=== PATIENT | male | born 1970 | race Caucasian/White ===

== ENCOUNTER 2017-06-08 15:11 | Emergency (ER) | payer OTHER ==
[~2017-06-08] VITALS: Ht 165.1 cm; Wt 136.1 kg
[~2017-06-08 15:11] MED LIST: ALBUTEROL SULFAT3 ML IH; AMLO5TAB PO; AMLODIPINE10 M2 PO; BREO ELLIPTA1 POW IH; CARVEDILOL6.25 MG PO; CIPRO 500MG TA500 MG PO; FLAGYL500 M1 PO; HYDRALAZINE50 MG PO; IBUPROFEN200 MG PO; LIPITOR10 MG PO; LISINOPRIL 10MG10 MG PO; NORCO 325 MG-51 TAB PO; POTASSIUM CHLO10 ME1 PO; PREDNISONE 20MG20 MG PO; PREDNISONE20 MG PO
[2017-06-08 15:27] LABS: HEMOGLOBIN 14.5 g/dL (14.1-18.0); LYMPH # 2.1 K/mm3 (0.7-4.5); LYMPH % 26.7 % (10-50)
--- OUTSIDE RECORDS SUMMARY | 2017-06-08 15:35 | External Medical Summary Rpt ---
Author Author , WARD HOPPER Address Unknown Phone [email or web address] Care Team Providers Care Auto Technician Name Role Phone [facility] Unavailable Unavailable HOSPITAL, [facility], Unavailable Unavailable [facility] Unavailable Unavailable [facility] BREEN MARTINA, NUHA MARTINA Unavailable Unavailable OLIVIER MARIA ELENA, OLIVIER Unavailable Unavailable MARIA ELENA OLIVIER MARIA ELENA, OLIVIER Unavailable Unavailable MARIA ELENA SANTOS RHO, SANTOS Unavailable Unavailable RHO KALIE ERAZO, Unavailable Unavailable HAGSTEPHANI CASTRO [facility] Unavailable Unavailable ASSOCIAT, [facility], 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 TECHNICIAN [facility] Unavailable [facility]available [facility], [facility], 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 TECHNICIAN [facility], Unavailable Unavailable [facility] Un[facility] Unavailable [facility] MARTINA BREEN MD Unavailable Unavailable CONSULTING SERV, MARTINA BREEN MD CONSULTING SERV PRETORIUS VARSHA, Unavailable Unavailable PRETORIUS VARSHA [facility] Unavailable Unavailable [facility], [facility], Unavailable [facility]available [facility], Unavailable Unavailable [facility] Purpose Continuity of Care Document - 12-23-2013 through 2016 Problems Code Diagnosis DOS Provider Status 65407 OBSTRUCTIVE 11-15-2014 [facility] WITHOUT EXACERBAT 64151 EXTRINSIC 11-15-2014 [facility] UNSPECIFIED LLC 4011 ESSENTIAL 09-15-2014 MARTINA VELOZ MD N, BENIGN CONSULTING SERV 4019 UNSPECIFIED 09-06-2014 [facility] [place] [facility] HYPERTENSIO N V771 SCREENING 09-06-2014 [facility] DIABETES [facility] MELLITUS 8509 UNSPECIFIED 08-31-2014 OLIVIER MARIA ELENA CONCUSSION E9179 OTHER 08-31-2014 OLIVIER MARIA ELENA STRIKING AGAINST W/WO SUBSEQUENT FALL 496 CHRONIC 02-16-2014 [facility], AIRWAY 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 OBSTRUCTION [facility]OS V5869 LONG-TERM 02-16-2014 [facility], (CURRENT) 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 TECHNICIAN USE OF [facility] CO OTHER HOS MEDICATIONS 63102 LEUKOCYTOSI 01-19-2014 [facility], S 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 TECHNICIAN UNSPECIFIED [facility] 28426 LEUKEMOID 01-19-2014 [facility] 34656 SHORTNESS 01-19-2014 [facility] 7862 COUGH 01-19-2014 [facility], 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 TECHNICIAN [facility] 2724 OTHER AND 01-12-2014 [facility], UNSPECIFIED 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 TECHNICIAN [facility] HYPERLIPIDE HOS COLT 75700 OTHER 01-12-2014 [facility], DISEASES OF 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 TECHNICIAN LUNG NOT [facility] ELSEWHERE HOS CLASSIFIED V570 CARE 01-12-2014 [facility], INVOLVING 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 TECHNICIAN BREATHING [facility] EXERCISES HOS V5883 ENCOUNTER 01-12-2014 [facility], FOR 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 TECHNICIAN THERAPEUTIC [facility] DRUG HOS MONITORING 4660 ACUTE 12-30-2013 [facility] V1269 PERSONAL 12-30-2013 [facility] OTHER DISEASES RESPIRATORY SYS 514 PULMONARY 12-23-2013 [facility] HYPOSTASIS 29238 OTHER 12-23-2013 [facility] RESPIRATORY ABNORMALITI ES Procedures Procedure DOS Code Location Performer Comment ADMN SET A7003 YOUR YOUR SM VOL 5 PHARMACY PHARMACY NONFILTR [facility] PNEUMAT NEBULIZR DISPBL DUP-SCAN 21150 MARTINA BREEN BREEN MARTINA ARTL KAEL 4 ABDL/PEL/ CONSULTIN SCROT&/[place] [address] [place] TH[facility]ROID 4 [facility] NG HORMONE TSH COMPREHEN 41838 [place] SIVE 4 [facility] PANEL BLOOD 25853 [place] COUNT 4 [facility] AUTOMATED RADIOLOGI 46166 [facility] [place] [facility] EXAM 4 RADIOLOGY RHO CHEST 2 VIEWS FRONTAL&L ATERAL HEMOGLOBI 42303 [place] N 4 [facility] DEMETRIS A1C LIPID 19070 [place] PANEL 4 [facility] NEBULIZER E0570 [facility] DHALIWAL WITH 4 [facility] R EQUIPME EQUIPME ADMN SET A7003 YOUR YOUR SM VOL 4 PHARMACY PHARMACY NONFILTR [facility] PNEUMAT NEBULIZR DISPBL BLOOD 52586 [facility] Kimeltu, [facility], COUNT 4 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 TECHNICIAN 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 TECHNICIAN COMPLETE CARMEN CARMEN AUTO&AUTO CO HOS CO HOS DIFRNTL WBC BASIC 98844 [facility] [employer]elt[employer], [facility], METABOLIC 4 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 TECHNICIAN 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 TECHNICIAN PANEL [facility] CARMEN CALCIUM CO HOS CO HOS TOTAL BLOOD 45336 [facility] SMEAR 4 [facility] PERIPHERA L INTERP PHYS W/WRIT REPORT RADIOLOGI 58550 [facility] Kimeltu, [facility], C EXAM 4 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 TECHNICIAN 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 TECHNICIAN CHEST 2 CARMEN CARMEN VIEWS CO HOS CO HOS FRONTAL&L ATERAL BRNCDILAT 35123 [facility] [place]elt[employer], [facility], RSPSE 4 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 TECHNICIAN 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 TECHNICIAN SPMTRY CARMEN CARMEN PRE&POST- CO HOS CO HOS BRNCDILAT ADMN LIPID 15797 [facility] [place]elt[employer], [facility], PANEL 4 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 TECHNICIAN 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 TECHNICIAN CARMEN [facility] CO HOS CO HOS LIPOPROTE 02307 [facility] [place], [facility], IN DIRECT 4 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 TECHNICIAN 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 TECHNICIAN CARMEN CARMEN MEASUREME CO HOS CO HOS NT LDL CHOLESTER OL BLOOD 01115 [facility] [place], [facility], COUNT 4 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 TECHNICIAN 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 TECHNICIAN COMPLETE CARMEN CARMEN AUTO&AUTO CO HOS CO HOS DIFRNTL WBC COMPREHEN 61836 [facility] [place], [facility], SIVE 4 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 TECHNICIAN 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 TECHNICIAN METABOLIC CARMEN CARMEN PANEL CO HOS CO HOS RADIOLOGI 95362 [facility] C EXAM 4 EIDER CASTRO CHEST 2 RADIOLOGY VIEWS ASSOCIAT FRONTAL&L ATERAL Encounters Encounter Start End Date Code Location Performer Type Date OFFICE 53499 MARTINA BREEN BREEN MARTINA OUTPATIEN 4 4 MD T VISIT CONSULTIN 15 G SERV MINUTES [facility] [place] - [address] [facility] T EMERGENCY 52094 OLIVIER AGUAYO 4 4 MARIA ELENA MARIA ELENA DEPARTMEN T VISIT HIGH/URGE NT SEVERITY [facility], - 4 4 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 TECHNICIAN OUTPATIEN [facility], - 4 4 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 TECHNICIAN OUTPATIEN [facility], - 4 4 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 TECHNICIAN OUTPATIEN [facility] T [facility] EMERGENCY 91458 [facility], 4 4 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 TECHNICIAN [facility] CARMEN T VISIT CO [facility] MODERATE SEVERITY HOSPITAL [facility], - 4 4 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 TECHNICIAN OUTPATIEN [facility] T CO HOS EMERGENCY 49927 [facility] PRETORIUS 4 4 [facility] T VISIT HIGH/URGE NT SEVERITY
--- OUTSIDE RECORDS SUMMARY | 2017-06-08 15:35 | External Medical Summary Rpt ---
Author Author , WARD HOPPER Address Unknown Phone [email or web address] [email or web address] Care Team Providers Care Quality Control Tester Name Role Phone [facility] Unavailable Unavailable HOSPITAL, [facility], Unavailable Unavailable [facility], Unavailable Unavailable [facility] BREEN MARTINA, NUHA MARTINA Unavailable Unavailable OLIVIER MARIA ELENA, OLIVIER Unavailable Unavailable MARIA ELENA OLIVIER MARIA ELENA, OLIVIER Unavailable Unavailable MARIA ELENA SANTOS RHO, SANTOS Unavailable Unavailable RHO KALIE ERAZO, Unavailable Unavailable HAGSTEPHANI CASTRO [facility] Unavailable Unavailable ASSOCIAT, [facility], HEALTH INSPECTOR FOOD [facility] Unavailable Unavailable CO HOS, [facility], HEALTH INSPECTOR FOOD [facility], Unavailable Unavailable [facility] Unavailable Unavailable LABS, [...] 2016 Problems Code Diagnosis DOS Provider Status 13252 OBSTRUCTIVE 11-15-2014 [facility] WITHOUT EXACERBAT 22544 EXTRINSIC 11-15-2014 [facility] PHARMACY UNSPECIFIED LLC 4011 ESSENTIAL 09-15-2014 MARTINA VELOZ MD N, BENIGN CONSULTING SERV 4019 UNSPECIFIED 09-06-2014 [facility] [place] [facility] HYPERTENSIO N V771 SCREENING 09-06-2014 [facility] 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 [facility] NEC HOS V5869 LONG-TERM 02-16-2014 [facility], (CURRENT) HEALTH INSPECTOR FOOD USE OF [facility] OTHER HOS MEDICATIONS 82748 LEUKOCYTOSI 01-19-2014 [facility], S HEALTH INSPECTOR FOOD UNSPECIFIED [facility] 91429 LEUKEMOID 01-19-2014 [facility] 37295 SHORTNESS 01-19-2014 [facility] 7862 COUGH 01-19-2014 [facility], HEALTH INSPECTOR FOOD [facility]OS 2724 OTHER AND 01-12-2014 [facility], UNSPECIFIED HEALTH INSPECTOR FOOD [facility] HYPERLIPIDE HOS COLT 19564 OTHER 01-12-2014 [facility], DISEASES OF HEALTH INSPECTOR FOOD LUNG NOT [facility] ELSEWHERE HOS CLASSIFIED V570 CARE 01-12-2014 [facility], INVOLVING HEALTH INSPECTOR FOOD BREATHING [facility] EXERCISES HOS V5883 ENCOUNTER 01-12-2014 [facility], FOR HEALTH INSPECTOR FOOD THERAPEUTIC [facility] DRUG HOS MONITORING 4660 ACUTE 12-30-2013 [facility] V1269 PERSONAL 12-30-2013 [facility] OTHER DISEASES RESPIRATORY SYS 514 PULMONARY 12-23-2013 [facility] HYPOSTASIS 82337 OTHER 12-23-2013 [facility] RESPIRATORY ABNORMALITI ES Procedures Procedure DOS Code Location Performer Comment ADMN SET A7003 YOUR YOUR SM VOL 5 PHARMACY PHARMACY NONFILTR [facility] PNEUMAT NEBULIZR DISPBL DUP-SCAN 75674 MARTINA BREEN BREEN MARTINA ARTL KAEL 4 ABDL/PEL/ CONSULTIN SCROT&/[place] [address] [place] TH[facility]ROID 4 [facility] NG HORMONE TSH COMPREHEN 65867 [place] SIVE 4 [facility] PANEL BLOOD 89330 [place] COUNT 4 [facility] AUTOMATED RADIOLOGI 31430 [facility] [place] [facility] EXAM 4 RADIOLOGY RHO CHEST 2 VIEWS FRONTAL&L ATERAL HEMOGLOBI 14550 [place] N 4 [facility] DEMETRIS A1C LIPID 57325 [place] PANEL 4 [facility] NEBULIZER E0570 [facility] DHALIWAL WITH 4 [facility] R EQUIPME EQUIPME ADMN SET A7003 YOUR YOUR SM VOL 4 PHARMACY PHARMACY NONFILTR [facility] PNEUMAT NEBULIZR DISPBL BLOOD 84941 [facility] [employer], [facility], COUNT 4 HEALTH INSPECTOR FOOD HEALTH INSPECTOR FOOD COMPLETE CARMEN CARMEN AUTO&AUTO CO HOS CO HOS DIFRNTL WBC BASIC 59114 [facility] [employer], [facility], METABOLIC 4 HEALTH INSPECTOR FOOD HEALTH INSPECTOR FOOD PANEL CARMEN CARMEN CALCIUM CO HOS CO HOS TOTAL BLOOD 77933 [facility] SMEAR 4 [facility] PERIPHERA L INTERP PHYS W/WRIT REPORT RADIOLOGI 83871 [facility] [employer], [facility], C EXAM 4 HEALTH INSPECTOR FOOD HEALTH INSPECTOR FOOD CHEST 2 CARMEN CARMEN VIEWS CO HOS CO HOS FRONTAL&L ATERAL BRNCDILAT 01333 [facility] [employer], [facility], RSPSE 4 HEALTH INSPECTOR FOOD HEALTH INSPECTOR FOOD SPMTRY CARMEN CARMEN PRE&POST- CO HOS CO HOS BRNCDILAT ADMN LIPID 78611 [facility] [employer], [facility], PANEL 4 HEALTH INSPECTOR FOOD HEALTH INSPECTOR FOOD CARMEN CARMEN CO HOS CO HOS LIPOPROTE 91480 [facility] [employer], [facility], IN DIRECT 4 HEALTH INSPECTOR FOOD HEALTH INSPECTOR FOOD CARMEN CARMEN MEASUREME CO HOS CO HOS NT LDL CHOLESTER OL BLOOD 46934 [facility] [employer], [facility], COUNT 4 HEALTH INSPECTOR FOOD HEALTH INSPECTOR FOOD COMPLETE CARMEN CARMEN AUTO&AUTO CO HOS CO HOS DIFRNTL WBC COMPREHEN 41494 [facility] [employer], [facility], SIVE 4 HEALTH INSPECTOR FOOD HEALTH INSPECTOR FOOD METABOLIC CARMEN CARMEN PANEL CO HOS CO HOS RADIOLOGI 16034 [facility] C EXAM 4 EIDER CASTRO CHEST 2 RADIOLOGY VIEWS ASSOCIAT FRONTAL&L ATERAL Encounters Encounter Start End Date Code Location Performer Type Date OFFICE 00205 MARTINA BREEN BREEN MARTINA OUTPATIEN 4 4 MD T VISIT CONSULTIN 15 G SERV MINUTES [facility] [place] - [address] [facility] T EMERGENCY 38810 OLIVIER AGUAYO 4 4 MARIA ELENA MARIA ELENA DEPARTMEN T VISIT HIGH/URGE NT SEVERITY [facility], - 4 4 HEALTH INSPECTOR FOOD OUTPATIEN [facility] - 4 4 HEALTH INSPECTOR FOOD OUTPATIEN [facility] - 4 4 HEALTH INSPECTOR FOOD OUTPATIEN [facility] T CO HOS EMERGENCY 27091 [facility], 4 4 HEALTH INSPECTOR FOOD [facility] CARMEN T VISIT CO [facility] MODERATE SEVERITY HOSPITAL [facility], - 4 4 HEALTH INSPECTOR FOOD OUTPATIEN [facility] T CO HOS EMERGENCY 60968 [facility] PRETORIUS 4 4 [facility] T VISIT HIGH/URGE NT SEVERITY
--- OUTSIDE RECORDS SUMMARY | 2017-06-08 15:36 | External Medical Summary Rpt ---
Author Author , WARD HOPPER Address Unknown Phone [email or web address] Care Team Providers Care Development Geologist Name Role Phone [facility] Unavailable Unavailable HOSPITAL, [facility], Unavailable Unavailable [facility], Unavailable Unavailable [facility] BREEN MARTINA, NUHA MACK Unavailable Unavailable OLIVIER MARIA ELENA, OLIVIER Unavailable Unavailable MARIA ELENA OLIVIER MARIA ELENA, OLIVIER Unavailable Unavailable MARIA ELENA SANTOS RHO, SANTOS Unavailable Unavailable RHO KALIE ERAZO, Unavailable Unavailable KALIE ERAZO [facility] Unavailable Unavailable ASSOCIAT, [facility], CRIMINAL PROFILER [facility] Unavailable Unavailable [facility], [facility], CRIMINAL PROFILER [facility] CO [facility], Unavailable Unavailable [facility] Unavailable Unavailable LABS, [...] 2016 Problems Code Diagnosis DOS Provider Status 07873 OBSTRUCTIVE 11-15-2014 [facility] WITHOUT EXACERBAT 02888 EXTRINSIC 11-15-2014 [facility] PHARMACY UNSPECIFIED LLC 4011 ESSENTIAL 09-15-2014 MARTINA VELOZ MD N, BENIGN CONSULTING SERV 4019 UNSPECIFIED 09-06-2014 [facility] [place] [facility] HYPERTENSIO N V771 SCREENING 09-06-2014 [facility] DIABETES [facility] MELLITUS 8509 UNSPECIFIED 08-31-2014 OLIVIER MARIA ELENA CONCUSSION E9179 OTHER 08-31-2014 OLIVIER MARIA ELENA STRIKING AGAINST W/WO SUBSEQUENT FALL 496 CHRONIC 02-16-2014 [facility], AIRWAY CRIMINAL PROFILER OBSTRUCTION [facility] NEC HOS V5869 LONG-TERM 02-16-2014 [facility], (CURRENT) CRIMINAL PROFILER USE OF [facility] CO OTHER HOS MEDICATIONS 87506 LEUKOCYTOSI 01-19-2014 [facility], S CRIMINAL PROFILER UNSPECIFIED [facility] 59739 LEUKEMOID 01-19-2014 [facility] 18726 SHORTNESS 01-19-2014 [facility] 7862 COUGH 01-19-2014 [facility], CRIMINAL PROFILER [facility] CO HOS 2724 OTHER AND 01-12-2014 [facility], UNSPECIFIED CRIMINAL PROFILER [facility] HYPERLIPIDE HOS COLT 77677 OTHER 01-12-2014 [facility], DISEASES OF CRIMINAL PROFILER LUNG NOT [facility] CO ELSEWHERE HOS CLASSIFIED V570 CARE 01-12-2014 [facility], INVOLVING CRIMINAL PROFILER BREATHING [facility] EXERCISES HOS V5883 ENCOUNTER 01-12-2014 [facility], FOR CRIMINAL PROFILER THERAPEUTIC [facility] DRUG HOS MONITORING 4660 ACUTE 12-30-2013 [facility] V1269 PERSONAL 12-30-2013 [facility] OTHER DISEASES RESPIRATORY SYS 514 PULMONARY 12-23-2013 [facility] HYPOSTASIS 30923 OTHER 12-23-2013 [facility] RESPIRATORY ABNORMALITI ES Procedures Procedure DOS Code Location Performer Comment ADMN SET A7003 YOUR YOUR SM VOL 5 PHARMACY PHARMACY [employer] PNEUMAT NEBULIZR DISPBL DUP-SCAN 75908 MARTINA BREEN BREEN MARTINA ARTL KAEL 4 ABDL/PEL/ CONSULTIN SCROT&/RP G SERV R ORGN COM COMPREHEN 28354 SURI NICHOLSON SIVE [address] [place] [address] [place] [address] SURI NICHOLSASYA THYROID 4 [facility] NG HORMONE TSH RADIOLOGI 35432 [facility] [place] [facility] C EXAM 4 RADIOLOGY RHO CHEST 2 VIEWS FRONTAL&L ATERAL LIPID 77819 SURI NICHOLSON PANEL [address] [place] [address] HEMOGLOBI 79877 MAGDALENAASYA MAGDALENAON N [address] [place] [address] DEMETRIS A1C BLOOD [address] [facility] AUTOMATED ADMN SET A7003 YOUR YOUR SM VOL 4 PHARMACY PHARMACY NONFILTR [facility] PNEUMAT NEBULIZR DISPBL NEBULIZER E0570 MADHURI DHALIWAL WITH 4 HOME HOME COMPRESS[facility] MEDICAL MEDICAL R EQUIPME EQUIPME BASIC 55329 [facility], [facility], METABOLIC 4 CRIMINAL PROFILER CRIMINAL PROFILER PANEL CARMEN CARMEN CALCIUM CO HOS CO HOS TOTAL BLOOD 53906 [facility], [facility], COUNT 4 CRIMINAL PROFILER CRIMINAL PROFILER COMPLETE CARMEN CARMEN AUTO&AUTO CO HOS CO HOS DIFRNTL WBC BLOOD 61713 [facility] SMEAR 4 [facility] LLC PERIPHERA L INTERP PHYS W/WRIT REPORT RADIOLOGI 36714 [facility] C EXAM 4 EIDER CASTRO CHEST 2 RADIOLOGY VIEWS ASSOCIAT FRONTAL&L ATERAL COMPREHEN 68906 [facility] Symphony [employer], [facility], SIVE 4 CRIMINAL PROFILER CRIMINAL PROFILER METABOLIC CARMEN CARMEN PANEL CO HOS CO HOS BRNCDILAT 31229 [facility] Symphony Dynamo, [facility], RSPSE 4 CRIMINAL PROFILER CRIMINAL PROFILER SPMTRY CARMEN MORALES PRE&POST- CO HOS CO HOS BRNCDILAT ADMN LIPID 20570 [facility] Symphony Dynamo, [facility], PANEL 4 CRIMINAL PROFILER CRIMINAL PROFILER CARMEN CARMEN CO HOS CO HOS LIPOPROTE 48937 [facility] Symphony [employer], [facility], IN DIRECT 4 CRIMINAL PROFILER CRIMINAL PROFILER CARMEN CARMEN MEASUREME CO HOS CO HOS NT LDL CHOLESTER OL BLOOD 59310 [facility] Symphony [employer], [facility], COUNT 4 CRIMINAL PROFILER CRIMINAL PROFILER COMPLETE CARMEN CARMEN AUTO&AUTO CO HOS CO HOS DIFRNTL WBC RADIOLOGI 17315 [facility] C EXAM 4 EIDER CASTRO CHEST 2 RADIOLOGY VIEWS ASSOCIAT FRONTAL&L ATERAL Encounters Encounter Start End Date Code Location Performer Type Date OFFICE 38106 MARTINA BREEN BREEN MARTINA OUTPATIEN 4 4 MD T VISIT CONSULTIN 15 G SERV MINUTES [facility] [place] - 4 4 [facility] T EMERGENCY 91500 OLIVIER AGUAYO 4 4 MARIA ELENA MARIA ELENA DEPARTMEN T VISIT HIGH/URGE NT SEVERITY HOSPITAL [facility], - 4 4 CRIMINAL PROFILER OUTPATIEN [facility] T [facility] - 4 4 CRIMINAL PROFILER OUTPATIEN CARMEN T [facility], - 4 4 CRIMINAL PROFILER OUTPATIEN CARMEN T [facility], - 4 4 CRIMINAL PROFILER OUTPATIEN CARMEN T CO [facility] EMERGENCY 64211 [facility], 4 4 CRIMINAL PROFILER [facility] CARMEN T VISIT CO HOS MODERATE SEVERITY EMERGENCY 28357 CARMEN PRETORIUS [address] [facility] T VISIT HIGH/URGE NT SEVERITY
--- OUTSIDE RECORDS SUMMARY | 2017-06-08 15:36 | External Medical Summary Rpt ---
Author Author [employer], [employer] Address Unknown Phone Unavailable
--- OUTSIDE RECORDS SUMMARY | 2017-06-08 15:36 | External Medical Summary Rpt ---
Demographics Preferred Language Hebrew Marital Status Unknown Yarsanism Affiliation Unknown Race Unknown Ethnic Group Unknown Author Author FARIHA Address Unknown Phone Immunization Unable to retrieve immunization data due to connection failure with Immunization Registry. Please try again later.
--- OUTSIDE RECORDS SUMMARY | 2017-06-08 15:36 | External Medical Summary Rpt ---
Demographics Preferred Language Italian Marital Status Unknown Alevism Affiliation Unknown Race Unknown Ethnic Group Unknown Author Author FARIHA Address Unknown Phone Immunization Unable to retrieve immunization data due to connection failure with Immunization Registry. Please try again later.
--- OUTSIDE RECORDS SUMMARY | 2017-06-08 15:36 | External Medical Summary Rpt ---
Author Author , WARD HOPPER Address Unknown Phone [email or web address] Care Team Providers Care Cd Technician Name Role Phone [facility] Unavailable Unavailable HOSPITAL, [facility], Unavailable Unavailable [facility], Unavailable Unavailable [facility] BREEN MARTINA, NUHA MACK Unavailable Unavailable OLIVIER MARIA ELENA, OLIVIER Unavailable Unavailable MARIA ELENA OLIVIER MARIA ELENA, OLIVIER Unavailable Unavailable MARIA ELENA SANTOS RHO, SANTOS Unavailable Unavailable RHO KALIE ERAZO, Unavailable Unavailable KALIE ERAZO [facility] Unavailable Unavailable ASSOCIAT, [facility], PARAMEDIC SUPERVISOR [facility] Unavailable Unavailable CO [facility], [facility], PARAMEDIC SUPERVISOR [facility], Unavailable Unavailable [facility] Unavailable Unavailable LABS, [...] 2016 Problems Code Diagnosis DOS Provider Status 91541 OBSTRUCTIVE 11-15-2014 [facility] WITHOUT EXACERBAT 68654 EXTRINSIC 11-15-2014 YOUR ASTHMA, PH[facility]ACY UNSPECIFIED LLC 4011 ESSENTIAL 09-15-2014 MARTINA VELOZ MD N, BENIGN CONSULTING SERV 4019 UNSPECIFIED 09-06-2014 [facility] HYPERTENSIO N V771 SCREENING 09-06-2014 [facility] DIABETES [facility] MELLITUS 8509 UNSPECIFIED 08-31-2014 OLIVIER MARIA ELENA CONCUSSION E9179 OTHER 08-31-2014 OLIVIER MARIA ELENA STRIKING AGAINST W/WO SUBSEQUENT FALL 496 CHRONIC 02-16-2014 [facility], AIRWAY PARAMEDIC SUPERVISOR OBSTRUCTION [facility] NEC [facility] V5869 LONG-TERM 02-16-2014 [facility], (CURRENT) PARAMEDIC SUPERVISOR USE OF [facility] OTHER HOS MEDICATIONS 46128 LEUKOCYTOSI 01-19-2014 [facility], S PARAMEDIC SUPERVISOR UNSPECIFIED [facility] [place] [facility] 30600 LEUKEMOID 01-19-2014 [facility] 10822 SHORTNESS 01-19-2014 [facility] 7862 COUGH 01-19-2014 [facility], PARAMEDIC SUPERVISOR [facility] 2724 OTHER AND 01-12-2014 [facility], UNSPECIFIED PARAMEDIC SUPERVISOR [facility] HYPERLIPIDE HOS COLT 28697 OTHER 01-12-2014 [facility], DISEASES OF PARAMEDIC SUPERVISOR LUNG NOT [facility] ELSEWHERE HOS CLASSIFIED V570 CARE 01-12-2014 [facility], INVOLVING PARAMEDIC SUPERVISOR BREATHING [facility] EXERCISES HOS V5883 ENCOUNTER 01-12-2014 [facility], FOR PARAMEDIC SUPERVISOR THERAPEUTIC [facility] DRUG [facility] MONITORING 4660 ACUTE 12-30-2013 [facility] [id number] PERSONAL 12-30-2013 [facility] OTHER DISEASES RESPIRATORY SYS 514 PULMONARY 12-23-2013 [facility] HYPOSTASIS 03964 OTHER 12-23-2013 [facility] RESPIRATORY ABNORMALITI ES Procedures Procedure DOS Code Location Performer Comment ADMN SET A7003 YOUR YOUR SM VOL 5 PHARMACY PHARMACY [facility] PNEUMAT NEBULIZR DISPBL DUP-SCAN 49921 MARTINA BREEN BREEN MARTINA ARTL KAEL 4 ABDL/PEL/ CONSULTIN SCROT&/RP G SERV R ORGN COM COMPREHEN 74969 SURI NICHOLSON SIVE [address] [place] [address] [place] [address] SURI NICHOLSASYA THYROID 4 [facility] RADIOLOGI 85482 [facility] [place] SANTOS C EXAM 4 RADIOLOGY RHO CHEST 2 VIEWS FRONTAL&L ATERAL LIPID 49229 SURI NICHOLSON PANEL [address] [place] [address] HEMOGLOBI 78930 MAGDALENAASYA MAGDALENAON N [address] [place] [address] DEMETRIS A1C BLOOD 33397 SURI NICHOLSON COUNT 4 [facility] AUTOMATED ADMN SET A7003 YOUR YOUR SM VOL 4 PHARMACY PHARMACY NONFILTR [employer] PNEUMAT NEBULIZR DISPBL NEBULIZER E0570 MADHURI DHALIWAL WITH 4 HOME HOME [facility] R EQUIPME EQUIPME BASIC 20613 [facility], [facility], METABOLIC 4 PARAMEDIC SUPERVISOR PARAMEDIC SUPERVISOR PANEL CAR[facility] CALCIUM CO HOS CO HOS TOTAL BLOOD 74685 [facility], [facility], COUNT 4 PARAMEDIC SUPERVISOR PARAMEDIC SUPERVISOR COMPLETE CARMEN CARMEN AUTO&AUTO CO HOS CO HOS DIFRNTL WBC BLOOD 26774 [facility] SMEAR 4 [facility] PERIPHERA L INTERP PHYS W/WRIT REPORT RADIOLOGI 77497 [facility] C EXAM 4 EIDER CASTRO CHEST 2 RADIOLOGY VIEWS ASSOCIAT FRONTAL&L ATERAL COMPREHEN 57996 [facility], [facility], SIVE 4 PARAMEDIC SUPERVISOR PARAMEDIC SUPERVISOR METABOLIC CARMEN CARMEN PANEL CO HOS CO HOS BRNCDILAT 98519 [facility], [facility], RSPSE 4 PARAMEDIC SUPERVISOR PARAMEDIC SUPERVISOR SPMTRY CARMEN MORALES PRE&POST- CO HOS CO HOS BRNCDILAT ADMN LIPID 32918 [facility], [facility], PANEL 4 PARAMEDIC SUPERVISOR PARAMEDIC SUPERVISOR CARMEN CARMEN CO HOS CO HOS LIPOPROTE 17526 [facility], [facility], IN DIRECT 4 PARAMEDIC SUPERVISOR PARAMEDIC SUPERVISOR CARMEN [facility] MEASUREME CO HOS CO HOS NT LDL CHOLESTER OL BLOOD 94755 [facility], [facility], COUNT 4 PARAMEDIC SUPERVISOR PARAMEDIC SUPERVISOR COMPLETE CARMEN CARMEN AUTO&AUTO CO HOS CO HOS DIFRNTL WBC RADIOLOGI 07499 [facility] C EXAM 4 EIDER CASTRO CHEST 2 RADIOLOGY VIEWS ASSOCIAT FRONTAL&L ATERAL Encounters Encounter Start End Date Code Location Performer Type Date OFFICE 46280 MARTINA BREEN BREEN MARTINA OUTPATIEN 4 4 MD T VISIT CONSULTIN 15 G SERV MINUTES [facility] 4 4 [facility] 04551 OLIVIER AGUAYO 4 4 MARIA ELENA MARIA ELENA DEPARTMEN T VISIT HIGH/URGE NT SEVERITY HOSPITAL [facility], - 4 4 PARAMEDIC SUPERVISOR OUTPATIEN [facility] T [facility] - 4 4 PARAMEDIC SUPERVISOR OUTPATIEN CARMEN T [facility] - 4 4 PARAMEDIC SUPERVISOR OUTPATIEN CARMEN T [facility], - 4 4 PARAMEDIC SUPERVISOR OUTPATIEN CARMEN T CO [facility] EMERGENCY [address]33 [facility], 4 4 PARAMEDIC SUPERVISOR [facility] CARMEN T VISIT CO HOS MODERATE SEVERITY EMERGENCY 06034 [facility] PRETORIUS 4 4 [facility] T VISIT HIGH/URGE NT SEVERITY
--- NOTE | 2017-06-08 15:47 | Emergency Room Report ---
History of Present Illness Time Seen by [id number] Presenting Problem in Triage Pt arrived:Walked Presenting Problem:PT C/O CHEST PAIN THAT STARTED AROUND 1400. PT ADVISES THE PAIN IS SHARP AND COMES AND GOES. 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 N Clinical Suspician of Infection? N Mental Status: 1 - Regular (Normal Baseline) Sepsis Risk:Low Sepsis Risk Have you (or family members/close friends) recently traveled outside the [place]? N If Yes, where/when: Have you had exposure to infectious disease within the past month? N TB? Other? Specify: Patient reports sharp intermittent chest pain, worse with movement, nonradiating , not associated with any n/v or any new SOB, but reports chronic smoker's cough. No calf pain. No syncope or palpitations. No fever or epigastric pain. Has had a negative stress test at about a year ago, per t/c with this MD and his stepbrother, who is a reliable historian. 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 ALLERGIES Coded Allergies: No Known Allergies (06/08/17) Home Medications Active Scripts Hydralazine Hcl (Hydralazine) 50 MG PO TID #90 TAB Prov: 03/22/16 Amlodipine Besylate (Amlodipine) 10 MG PO BID #60 TAB Prov: 06/09/16 LISINOPRIL (Lisinopril) 10 MG PO BID #60 TAB Prov: 06/09/16 Reported Medications Albuterol Sulfate 3 ML IH QID Atorvastatin Calcium (Lipitor 10MG) 10 MG PO QHS History Medical History General CAD? No Angina: Yes PR: No Hypertension? Yes Hyperlipidemia? Yes CHF? No DVT? No PE? No COPD? Yes Asthma? Yes Anemia? No GERD? No Gastric ulcers? No GI Bleed? No Hernia? No Thyroid Problems? No Hypothyroidism? No CVA? No Seizures? No Diabetes? No Renal Insuffiency? No End Stage Renal Disease? No UTI? No Stones? No BPH? No GB Disease: No Nephritic Syndrome? No Asplenia? No Hepatitis? No Sickle Cell Disease? No Arthritis? No Migraines? No Cataracts? No Glaucoma? No MRSA? No HIV? No TB? No Anxiety? No Depression? No Cancer? No More? No Immunization Hx DT/Tetanus 1-4 Years Ago Pneumonia Refuses Surgical Hx Previous Surgery?N Family History Family Hx Diabetes No CAD No Hypertension Yes Hyperlipidemia Yes Cancer No TB No Social History Smoking Hx Smoker: Current Every Day Smoker Tobacco: Yes Type Cigarettes Packs/day < 1 Pack Alcohol Alcohol: No Review of Systems All Other Systems Reviewed and Negative Respiratory denies no symptoms reported ( NOT pleuritic) Cardiovascular see HPI Physical Exam Vital Signs Vital Signs Date Time Temp Pulse Resp B/P Pulse O2 O2 Flow FiO2 Ox Delivery Rate 06/08 1630 63 16 99/62 97 06/08 1601 63 16 135/65 99 06/08 1512 98.2 76 16 150/85 98 General Appearance normal appearance, WD/WN, no apparent distress Eye Exam - bilateral eye normal exam, bilateral eye PERRL, bilateral eye EOMI Neck normal inspection, non-tender, supple, full range of motion Respiratory Status Yes: trachea midline, chest symmetrical, non tender chest. No: respiratory distress, tender on palpation, use of accessory muscles, pain on inspiration, pain on expiration, productive cough, non productive cough. Lung Sounds bilateral: normal breath sounds, lungs clear. Cardiovascular normal exam, regular rate/rhythm, no peripheral edema, no gallop, no JVD, no murmur, no rub, normal peripheral pulses Gastrointestinal normal bowel sounds, normal exam, non tender, soft, no organomegaly, no pulsatile mass, no guarding, no rebound Extremities non-tender, normal range of motion, normal inspection, normal capillary refill, no calf tenderness, no pedal edema Strength 5 Upper Ext (L), 5 Upper Ext (R), 5 Lower Ext (L), 5 Lower Ext (R) Neurologic alert, normal exam, no motor/sensory deficits, oriented x 3 Skin intact, normal color Lymphatic no adenopathy Medical Decision Making LABS/Meds/Orders Pt receiving controlled substance in ED? No Results/Orders Laboratory Tests 06/08/17 1730: Troponin I < 0.02 06/08/17 1515: Sodium 137, Potassium 5.3 H, Chloride 108 H, Carbon Dioxide 18 L, BUN 42 H, Creatinine 1.8 H, Estimated Creat Clear 99, Estimated GFR (MDRD) 41, Glucose 101, Calcium 8.7, Total Bilirubin 0.6, AST 22, ALT 42, Alkaline Phosphatase 102, Creatine Kinase 362 H, CK-MB (CK-2) Rel Index 1.2, CK and CKMB Interp 4.3 H, Troponin I < 0.02, Total Protein 8.1, Albumin 3.8, Globulin 4.3 H, Albumin/ Globulin Ratio 0.9 L, WBC 7.9, RBC 5.13, Hgb 14.5, Hct 44.8, MCV 87.3, RDW 14.5 , Plt Count 219, MPV 9.3, Gran % 64.1, Gran # 5.1, Lymphocytes % 26.7, Monocytes % 4.9, Eosinophils % 3.4, Basophils % 0.9, Lymphocytes # 2.1, Monocytes # 0.4, Eosinophils # 0.3, Basophils # 0.1, PUBS MCHC 32.4, MCH 28.3 Current Medication Orders Sig/Neno Start time Last Medication Dose Route Stop Time Status Admin Sodium Chloride 10 ML PRN PRN 06/08 1530 AC IV 06/09 1516 Orders Procedure Date/time Status TROPONIN I 06/08 1730 Complete ELECTROCARDIOGRAM REQUEST 06/08 151 Active CHEST-PORTABLE 06/08 151 Active IV SALINE LOCK 06/08 151 Active CBC WITH AUTO DIFF 06/08 151 Complete CARDIAC ENZYMES 06/08 151 Complete CHEM 12 PROFILE 06/08 1516 Complete CM/EKG CM/EKG EKG rate, NSR, rhythm, no evid. of ischemic chgs, no ectopy, normal QRS, normal OR, normal EKG XRAY/CT/US XRAY/CT/US XRAY chest XR interpretation by reviewed by me Xray Results normal/NAD (c/w tob abuse; borderline CM) Progress ED Progress Notes 1 Date 06/08/17 Time 1704 Comment Resting comfortably; will check second trop ED Progress Notes 2 Date 06/08/17 Time 1800 Comment No complaints, stable at D/C; second trop nl. Departure Departure Time of Disposition 1800 Disposition DC Home or Self Care(routine) Clinical Impression Primary Impression: Atypical chest pain Condition STABLE Referrals Baldo El MD (Family) Patient Instructions DI for Atypical Chest Pain Additional Instructions See Dr. El this week for follow up Discharge Counseling Counseled pt/family regarding diagnosis, test results, home care, follow up needs ED Critical Care Critical Care No at 1805
--- NOTE | 2017-06-08 15:47 | Emergency Room Report ---
History of Present Illness Time Seen by [id number] Presenting Problem in Triage Pt arrived:Walked Presenting Problem:PT C/O CHEST PAIN THAT STARTED AROUND 1400. PT ADVISES THE PAIN IS SHARP AND COMES AND GOES. 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 N Clinical Suspician of Infection? N Mental Status: 1 - Regular (Normal Baseline) Sepsis Risk:Low Sepsis Risk Have you (or family members/close friends) recently traveled outside the [place]? N If Yes, where/when: Have you had exposure to infectious disease within the past month? N TB? Other? Specify: Patient reports sharp intermittent chest pain, worse with movement, nonradiating , not associated with any n/v or any new SOB, but reports chronic smoker's cough. No calf pain. No syncope or palpitations. No fever or epigastric pain. Has had a negative stress test at about a year ago, per t/c with this MD and his stepbrother, who is a reliable historian. 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 ALLERGIES Coded Allergies: No Known Allergies (06/08/17) Home Medications Active Scripts Hydralazine Hcl (Hydralazine) 50 MG PO TID #90 TAB Prov: 03/22/16 Amlodipine Besylate (Amlodipine) 10 MG PO BID #60 TAB Prov: 06/09/16 LISINOPRIL (Lisinopril) 10 MG PO BID #60 TAB Prov: 06/09/16 Reported Medications Albuterol Sulfate 3 ML IH QID Atorvastatin Calcium (Lipitor 10MG) 10 MG PO QHS History Medical History General CAD? No Angina: Yes HI: No Hypertension? Yes Hyperlipidemia? Yes CHF? No DVT? No PE? No COPD? Yes Asthma? Yes Anemia? No GERD? No Gastric ulcers? No GI Bleed? No Hernia? No Thyroid Problems? No Hypothyroidism? No CVA? No Seizures? No Diabetes? No Renal Insuffiency? No End Stage Renal Disease? No UTI? No Stones? No BPH? No GB Disease: No Nephritic Syndrome? No Asplenia? No Hepatitis? No Sickle Cell Disease? No Arthritis? No Migraines? No Cataracts? No Glaucoma? No MRSA? No HIV? No TB? No Anxiety? No Depression? No Cancer? No More? No Immunization Hx DT/Tetanus 1-4 Years Ago Pneumonia Refuses Surgical Hx Previous Surgery?N Family History Family Hx Diabetes No CAD No Hypertension Yes Hyperlipidemia Yes Cancer No TB No Social History Smoking Hx Smoker: Current Every Day Smoker Tobacco: Yes Type Cigarettes Packs/day < 1 Pack Alcohol Alcohol: No Review of Systems All Other Systems Reviewed and Negative Respiratory denies no symptoms reported ( NOT pleuritic) Cardiovascular see HPI Physical Exam Vital Signs Vital Signs Date Time Temp Pulse Resp B/P Pulse O2 O2 Flow FiO2 Ox Delivery Rate 06/08 1630 63 16 99/62 97 06/08 1601 63 16 135/65 99 06/08 1512 98.2 76 16 150/85 98 General Appearance normal appearance, WD/WN, no apparent distress Eye Exam - bilateral eye normal exam, bilateral eye PERRL, bilateral eye EOMI Neck normal inspection, non-tender, supple, full range of motion Respiratory Status Yes: trachea midline, chest symmetrical, non tender chest. No: respiratory distress, tender on palpation, use of accessory muscles, pain on inspiration, pain on expiration, productive cough, non productive cough. Lung Sounds bilateral: normal breath sounds, lungs clear. Cardiovascular normal exam, regular rate/rhythm, no peripheral edema, no gallop, no JVD, no murmur, no rub, normal peripheral pulses Gastrointestinal normal bowel sounds, normal exam, non tender, soft, no organomegaly, no pulsatile mass, no guarding, no rebound Extremities non-tender, normal range of motion, normal inspection, normal capillary refill, no calf tenderness, no pedal edema Strength 5 Upper Ext (L), 5 Upper Ext (R), 5 Lower Ext (L), 5 Lower Ext (R) Neurologic alert, normal exam, no motor/sensory deficits, oriented x 3 Skin intact, normal color Lymphatic no adenopathy Medical Decision Making LABS/Meds/Orders Pt receiving controlled substance in ED? No Results/Orders Laboratory Tests 06/08/17 1730: Troponin I < 0.02 06/08/17 1515: Sodium 137, Potassium 5.3 H, Chloride 108 H, Carbon Dioxide 18 L, BUN 42 H, Creatinine 1.8 H, Estimated Creat Clear 99, Estimated GFR (MDRD) 41, Glucose 101, Calcium 8.7, Total Bilirubin 0.6, AST 22, ALT 42, Alkaline Phosphatase 102, Creatine Kinase 362 H, CK-MB (CK-2) Rel Index 1.2, CK and CKMB Interp 4.3 H, Troponin I < 0.02, Total Protein 8.1, Albumin 3.8, Globulin 4.3 H, Albumin/ Globulin Ratio 0.9 L, WBC 7.9, RBC 5.13, Hgb 14.5, Hct 44.8, MCV 87.3, RDW 14.5 , Plt Count 219, MPV 9.3, Gran % 64.1, Gran # 5.1, Lymphocytes % 26.7, Monocytes % 4.9, Eosinophils % 3.4, Basophils % 0.9, Lymphocytes # 2.1, Monocytes # 0.4, Eosinophils # 0.3, Basophils # 0.1, PUBS MCHC 32.4, MCH 28.3 Current Medication Orders Sig/Neno Start time Last Medication Dose Route Stop Time Status Admin Sodium Chloride 10 ML PRN PRN 06/08 1530 AC IV 06/09 1516 Orders Procedure Date/time Status TROPONIN I 06/08 1730 Complete ELECTROCARDIOGRAM REQUEST 06/08 151 Active CHEST-PORTABLE 06/08 151 Active IV SALINE LOCK 06/08 151 Active CBC WITH AUTO DIFF 06/08 151 Complete CARDIAC ENZYMES 06/08 151 Complete CHEM 12 PROFILE 06/08 1516 Complete CM/EKG CM/EKG EKG rate, NSR, rhythm, no evid. of ischemic chgs, no ectopy, normal QRS, normal IN, normal EKG XRAY/CT/US XRAY/CT/US XRAY chest XR interpretation by reviewed by me Xray Results normal/NAD (c/w tob abuse; borderline CM) Progress ED Progress Notes 1 Date 06/08/17 Time 1704 Comment Resting comfortably; will check second trop ED Progress Notes 2 Date 06/08/17 Time 1800 Comment No complaints, stable at D/C; second trop nl. Departure Departure Time of Disposition 1800 Disposition DC Home or Self Care(routine) Clinical Impression Primary Impression: Atypical chest pain Condition STABLE Referrals Baldo El MD (Family) Patient Instructions DI for Atypical Chest Pain Additional Instructions See Dr. El this week for follow up Discharge Counseling Counseled pt/family regarding diagnosis, test results, home care, follow up needs ED Critical Care Critical Care No at 1800
[2017-06-08 16:06] LABS: BUN 42 mg/dL (7-18)
[2017-06-08 16:07] LABS: GFR (ESTIMATED) 41 ML/MIN (>60)
[2017-06-08 18:41] VITALS: BP 160/82
--- NOTE | 2017-06-08 19:47 | RADIOLOGY REPORT PS360 ---
CHEST-PORTABLE Ordering Physician: Patient Age: 46 years: Male HISTORY: CHEST PAIN central & left-sided chest pain. Started when woke up this morning. Smoker. TECHNIQUE: AP portable upright chest FINDINGS Large patient. Less than optimal inspiration.. Limited portable chest This crowds markings bilaterally. Mild accentuation of markings right chest most likely due to overlapping soft tissue but there may be some mild atelectasis. Right mid and lower chest. Difficult to totally exclude infiltrate but would favor mild atelectasis currently. No pleural effusion. No pneumothorax. Heart upper normal size. Agnes and mediastinal structures unremarkable IMPRESSION: ... Limited chest in this large patient. No prominent findings Only Question some slight hazy appearance towards right midlung and right lung base.. Most likely reflecting mild atelectasis and overlying chest density. Doubt early infiltrate but if symptoms persist suggest follow-up. Mild vascular engorgement. No CHF. No pleural effusion
== END 2017-06-08 18:42 | disposition home or self-care (01) ==
LOC: ER 15:11
PROVIDERS: Emergency Medicine
DX: R07.89 Other chest pain (principal); I10 Essential (primary) hypertension; J44.9 Chronic obstructive pulmonary disease, unspecified; Z72.0 Tobacco use